=== PATIENT | male | born 1980 | race Caucasian/White ===

== ENCOUNTER 2016-11-02 21:05 | Emergency (ER) | payer SELFPAY ==
[~2016-11-02] VITALS: Ht 172.7 cm; Wt 108.9 kg
[~2016-11-02 21:05] MED LIST: CATAFLAM50 MG PO; CLEOCIN HCL150 MG PO; DICLOFENAC POTA50 MG PO; HYDROCODONE BIT1 T11 PO; NKHM; VICODIN 5/500 505 MG PO
[2016-11-02] MEDS ORDERED: Motrin,Rufen800 MG PO (22:42)
[2016-11-02] MEDS ORDERED: ULTRAM50 MG PO (22:42)
== END 2016-11-02 22:45 | disposition home or self-care (01) ==
LOC: ED 21:05
DX: M25.461 Effusion, right knee (principal); F17.200 Nicotine dependence, unspecified, uncomplicated